=== PATIENT | male | born 1975 | race Caucasian/White ===

== ENCOUNTER 2018-02-01 11:00 | Emergency (ER) | payer OTHER, MEDICAID, SELFPAY ==
[2018-02-01 11:18] VITALS: BP 168/78; PULSE 89; RESP 20; TEMP 36.4; O2SAT 100; BMI 25.8
--- NOTE | 2018-02-01 12:09 | ED_ITS ---
HPI - Back Pain/Injury <Michelle Alvarez PA-C - Last Filed: 02/01/18 18:37> General Chief Complaint: Back Pain/Injury Stated Complaint: LOW BACK PAIN Time Seen by Provider: 02/01/18 12:07 Source: patient Mode of arrival: ambulatory Limitations: physical limitation History of Present Illness HPI Narrative: This 42-year-old who suffers from chronic low back pain comes in today due to exacerbation. He states that he was seen by Dr. Grant in October and states he had L4/5 HNP and arthritis. States that symptoms appeared to be improving so advised no surgery. Since then he has been doing somewhat better overall with pain but states he has had an exacerbation over the last week. He denies any specific injury, states he is working again for the last month and is on his feet more. He states pain is worse standing on his feet, and much worse with any type of twisting. Pain is better flat on his back. He states he has chronic numbness in his legs, more on the left side, but had gotten somewhat better and now getting worse again. He states that he feels like all of his back muscles are weak, and that other parts of his body are painful due to trying to compensate. He states that he is starting to have pain in his neck and numbness, like a feeling that his arms are asleep as well. He states that he shakes his arms and this way except. He states that he does not think there is new weakness in his extremities and it is more pain that stops him and also has muscle spasms. He states Flexeril has helped in the past but makes him sleepy during the day. He states that Young did not help, he thinks that steroids, tramadol, and Percocet helped acute pain in the past also. He states his PCP won't help with this aside from referrals. He denies other new symptoms. States he can get short of breath due to pain and trying to move around but otherwise no dyspnea or chest pain. He denies any bowel or bladder dysfunction. Related Data Home Medications Medication Instructions Recorded Confirmed Otc Pain Medication 1 dose PO PRN PRN 02/01/18 02/01/18 cyclobenzaprine 5 mg PO BID PRN 02/01/18 02/01/18 Previous Rx's Medication Instructions Recorded lidocaine [Lidoderm] 1 patch TOPICAL Q12H PRN #10 ea 09/24/17 cyclobenzaprine 5 mg PO Q8H PRN #30 tab 02/01/18 meloxicam [Mobic] 15 mg PO DAILY #14 tab 02/01/18 tramadol 50 mg PO Q6H PRN #5 tab 02/01/18 Allergies Allergy/AdvReac Type Severity Reaction Status Date / Time No Known Drug Allergies Allergy Verified 02/01/18 12:30 Review of Systems <Michelle Alvarez PA-C - Last Filed: 02/01/18 18:37> Review of Systems All systems reviewed & are unremarkable except as noted in HPI and below Exam <Michelle Alvarez PA-C - Last Filed: 02/01/18 18:37> Narrative Exam Narrative: GENERAL APPEARANCE: Patient sitting comfortably, in no distress. PULMONARY: Lungs clear to auscultation bilaterally CV: Regular rhythm regular without murmur, normal S1 and S2, no S3 or S4 MUSCULOSKELETAL: No point tenderness over the cervical spine. He does have some tenderness over the left strap muscles, and reduced R>L lateral bend secondary to tenderness. Strength in the upper extremities 5/5 bilateral shoulder shrug, biceps, triceps, and escort service attendant. No point tenderness over the lumbar spine. He is tender over the SI area and inferior lumbar musculature at the mid scapular line to lateral scapular line. Reduced range of motion in the trunk in all vazquez secondary to tenderness, especially with rotation and lateral bend. He is tender with move from supine to sit. Lower extremity strength 5/5 bilateral hip flexors, knee extensors, foot plantar flexion. Negative modified straight leg raise NEUROLOGIC: Bilateral DTRs 2+ throughout upper and lower extremities. Sensation is grossly intact throughout the extremities. Initial Vital Signs Initial Vital Signs: Vital Signs Temperature 97.5 F L 02/01/18 11:18 Pulse Rate 89 02/01/18 11:18 Respiratory Rate 20 02/01/18 11:18 Blood Pressure 168/78 H 02/01/18 11:18 Pulse Oximetry 100 02/01/18 11:18 <Viviane Ruano DO - Last Filed: 02/03/18 13:00> Initial Vital Signs Initial Vital Signs: Vital Signs Temperature 97.5 F L 02/01/18 11:18 Pulse Rate 89 02/01/18 11:18 Respiratory Rate 20 02/01/18 11:18 Blood Pressure 168/78 H 02/01/18 11:18 Pulse Oximetry 100 02/01/18 11:18 Course <Michelle Alvarez PA-C - Last Filed: 02/01/18 18:37> Additional Information: Patient appeared significantly improved after medications. He had not tried a lower dose of Flexeril during the day time before and seemed able to tolerate that well. He was unable to get an appointment for PCP follow-up for more than 3 weeks. We did phone and speak with his PCP office since he has had some new symptoms in the upper extremities as well as exacerbation of previous low back pain. We were able to obtain a follow-up appointment for him next week. He is appreciative and understands to return if any acutely worsening symptoms in the interim Orders Ordered: Discontinued Medications Cyclobenzaprine HCl (Flexeril) 5 mg PO NOW ONE Stop: 02/01/18 12:27 Last Admin: 02/01/18 12:51 Dose: 5 mg Ketorolac Tromethamine (Toradol) 60 mg IM NOW ONE Stop: 02/01/18 12:27 Last Admin: 02/01/18 12:45 Dose: 60 mg Lidocaine (Lidoderm) 2 each TOP NOW ONE Stop: 02/01/18 12:27 Last Admin: 02/01/18 12:47 Dose: 2 each Vital Signs - 8 hr 02/01/18 11:18 02/01/18 13:17 Temperature 97.5 F L Pulse Rate 89 73 Respiratory Rate 20 18 Blood Pressure 168/78 H Blood Pressure [Left Arm] 126/88 H Pulse Oximetry 100 98 <Viviane Ruano DO - Last Filed: 02/03/18 13:00> Orders Ordered: Discontinued Medications Cyclobenzaprine HCl (Flexeril) 5 mg PO NOW ONE Stop: 02/01/18 12:27 Last Admin: 02/01/18 12:51 Dose: 5 mg Ketorolac Tromethamine (Toradol) 60 mg IM NOW ONE Stop: 02/01/18 12:27 Last Admin: 02/01/18 12:45 Dose: 60 mg Lidocaine (Lidoderm) 2 each TOP NOW ONE Stop: 02/01/18 12:27 Last Admin: 02/01/18 12:47 Dose: 2 each Vital Signs - 8 hr 02/01/18 11:18 02/01/18 13:17 Temperature 97.5 F L Pulse Rate 89 73 Respiratory Rate 20 18 Blood Pressure 168/78 H Blood Pressure [Left Arm] 126/88 H Pulse Oximetry 100 98 Discharge Plan Departure Patient Disposition: Home, Self-Care Clinical Impression: Lumbar radiculopathy, Numbness and tingling Discharge Date/Time: 02/01/18 14:09 Interventions: ED Discharge Assessment Last Done: 02/01/18 14:08 Instructions: Managing Chronic Low Back Pain, DI for Low Back Pain Activity Restrictions/Additional Instructions: You should return if you have any acutely worsening symptoms such as inability to walk or urinate. I have prescribed a once daily anti-inflammatory for you called meloxicam. Please take this once daily, not with other [id number] NSAIDs such as Aleve or ibuprofen. You can also add [id number] 4% lidocaine patches which are very similar to the prescription, as well as Tylenol. I have prescribed the ?half dose? of the muscle relaxant you had previously, so you can take this during the day if it does not make you to sleepy, but beware of that and do not drive. You can take 2 tablets at night if needed. I have also prescribed a few of the tramadol that you had previously to help the acute pain over the next day or so. Make sure that you follow-up with your PCP next week as planned, check in on Wednesday the at 10: 15 a.m.. Make sure you review your new neck pain and the on and off tingling you have been your arms as well. Prescriptions: New meloxicam [Mobic] 15 mg tablet 15 mg PO DAILY Qty: 14 RF: 0 cyclobenzaprine 5 mg tablet 5 mg PO Q8H PRN (Reason: back pain/spasm) Qty: 30 RF: 0 tramadol 50 mg tablet 50 mg PO Q6H PRN (Reason: pain) Qty: 5 RF: 0 No Action lidocaine [Lidoderm] 1 EACH adhesive patch,medicated 1 patch Topical Q12H PRNQty: 10 RF: 3 cyclobenzaprine 5 MG tablet 5 mg PO BID PRN (Reason: Spasms) RF: 0 Otc Pain Medication 1 dose PO PRN PRN (Reason: Pain, Mild) RF: 0 Referrals: Catherine Rodarte PA-C [Primary Care Provider] - Esequiel Grant MD [Physician] - <Viviane Runao DO - Last Filed: 02/03/18 13:00> Cosign ED Attending Coszabrinaature Attestation: I was immediately available in the department for consultation. Documentation has been reviewed. I agree with assessment and plan.
[2018-02-01] MEDS: KETOROLAC 60 MG/2 ML VIAL IM (12:45)
[2018-02-01] MEDS: LIDOCAINE PATCH 1 EACH ADH..PATCH 2 EACH TOP (12:47)
[2018-02-01] MEDS: CYCLOBENZAPRINE 5 MG TABLET PO (12:51)
[2018-02-01 13:17] VITALS: BP 126/88; PULSE 73; RESP 18; O2SAT 98
== END 2018-02-01 14:09 | disposition home or self-care (01) ==
PROVIDERS: Emergency Provider Internal Medicine; Family Provider Family Medicine; PCP Physician Assistant
DX: M54.16 Radiculopathy, lumbar region (principal); R20.0 Anesthesia of skin; R20.2 Paresthesia of skin
CPT/HCPCS: 81003; 96372; 99282; 99283; J1885

== ENCOUNTER 2018-03-23 01:46 | Emergency (ER) | payer OTHER, MEDICAID, SELFPAY ==
[2018-03-23 02:01] VITALS: BP 134/103; PULSE 92; RESP 18; TEMP 36.7; O2SAT 97
[2018-03-23 03:30] LABS: Urine Amphetamines Negative (Negative); Urine Barbiturates Negative (Negative); Urine Benzodiazepines Positive (Negative); Urine Cocaine Negative (Negative); Urine MDMA Negative (Negative); Urine Methadone Negative (Negative); Urine Methamphetamines Negative (Negative); Urine Morphine/Opi cutoff 2000 Negative (Negative); Urine Oxycodone Negative (Negative); Urine Phencyclidine Negative (Negative); Urine Tetrahydrocannabinol Positive (Negative); Urine Tricyclic Antidepressant Negative (Negative)
[2018-03-23] MEDS: LORazepam 2 MG/ML SYRINGE IV (03:48)
[2018-03-23 03:50] LABS: Add Manual Diff / Slide Review NO; Eosinophils Percent Auto 3.2 % (2-4); Hematocrit 49.9 % (41-53); Hemoglobin 17.3 g/dL (13.5-17.5); Lymphocytes Percent Auto 36.5 % (25-40); Mean Corpuscular HGB Conc 34.6 % (30-36); Mean Corpuscular Hemoglobin 32.2 PG (26-34); Mean Corpuscular Volume 93.2 fL (80-100); Monocytes Percent Auto 9.8 % (3-14); Neutrophils Absolute Auto 2800 /uL (3000-5900); Neutrophils Percent Auto 49.5 % (50-75); Platelet Count 208 X10^3/uL (150-400); Red Blood Cell Count 5.36 X10^6/uL (4.5-5.9); Red Cell Distribution Width 15.5 % (11.6-14.8); White Blood Cell Count 5.7 X10^3/uL (4.5-11.0)
[2018-03-23] MEDS: THIAMINE 100 MG in DEXTROSE 5 % IN WATER 50 ML 204 ML IV (03:52)
[2018-03-23] MEDS: SODIUM CHLORIDE 0.9% 1,000 ML 1000 ML IV (03:52)
[2018-03-23 04:00] LABS: Alanine Aminotransferase 110 IU/L (21-72); Albumin 4.7 g/dL (3.5-5.0); Albumin Globulin Ratio 1.7 (1.0-2.8); Alkaline Phosphatase 122 U/L (38-126); Aspartate Aminotransferase 202 IU/L (17-59); BUN Creatinine Ratio 14.3 (6-22); Bilirubin Total 0.6 mg/dL (0.2-1.3); Bilirubin Unconjugated 0.3 mg/dL (0.0-1.1); Blood Urea Nitrogen 10 mg/dL (9-20); Carbon Dioxide 26 mmol/L (22-32); Chloride 103 mmol/L (98-107); Estimated Glomerular Filt Rate > 60.0 mL/min (>60); Globulin 2.8 g/dL (1.7-4.1); Glucose 93 mg/dL (70-100); HEMOLYSIS 16 (0-50); Lipase 89 U/L (23-300); Magnesium 2.2 mg/dL (1.6-2.3); Potassium 4.1 mmol/L (3.4-5.1); Sodium 145 mmol/L (137-145); Total Protein 7.5 g/dL (6.3-8.2)
[2018-03-23 04:08] LABS: Ethanol (ETOH) 325 mg/dL
[2018-03-23 05:27] VITALS: PULSE 128; RESP 20
--- NOTE | 2018-03-23 05:55 | ED_ITS ---
HPI - Alcohol General Chief Complaint: Toxicology Problem Stated Complaint: states alcoholic, nausea Time Seen by Provider: 03/23/18 01:58 Source: patient Mode of arrival: ambulatory Limitations: no limitations History of Present Illness HPI narrative: 42-year-old male presents to the emergency department with a chief complaint of feeling abnormal after consumption of significant alcohol tonight. He admitted the drinks about 1/5 of liquor per day and has a history of alcohol withdrawal including the DTs and even seizures. His last drink was a few hours prior to arrival. He denies headache or confusion nor nausea, vomiting or abdominal pain. He does complain of some resting tremor. His last effort at detox was about 1 year ago. He is unsure if he wishes to quit drinking or not MD complaint: alcohol intoxication and alcohol withdrawal Chronic alcohol use: Yes Previous visits for alcohol intoxication: Yes Recent trauma: No Associated symptoms: nausea Treatments prior to arrival: none Related Data Home Medications Medication Instructions Recorded Confirmed Otc Pain Medication 1 dose PO PRN PRN 02/01/18 02/11/18 cyclobenzaprine 5 mg PO BID PRN 02/01/18 02/11/18 Previous Rx's Medication Instructions Recorded meloxicam [Mobic] 15 mg PO DAILY #14 tab 02/01/18 tramadol 50 mg tablet 50 mg PO Q6H PRN #30 tab 02/11/18 cyclobenzaprine 5 mg tablet 5 mg PO Q8H PRN #30 tab 03/04/18 lorazepam [Ativan] See Label Instructions .ROUTE 03/23/18 .COMPLEX #19 tab Allergies Allergy/AdvReac Type Severity Reaction Status Date / Time No Known Drug Allergies Allergy Verified 03/04/18 12:35 Review of Systems Review of Systems All systems reviewed & are unremarkable except as noted in HPI and below Constitutional Denies chills, Denies fever(s), Denies lethargy and Denies weakness Eyes Denies change in vision, Denies eye discharge, Denies irritation and Denies loss of vision ENT Ears, Nose, Mouth, and Throat: Denies change in voice, Denies neck pain and Denies sore throat Cardiovascular Denies chest pain, Denies irregular heart rhythm, Denies lightheadedness, Denies palpitations, Denies dyspnea, Denies dyspnea on exertion and Denies orthopnea Respiratory Denies cough, Denies dyspnea, Denies dyspnea on exertion and Denies wheezing Gastrointestinal Gastrointestinal: Denies abdominal pain, Denies change in bowel habits, Denies diarrhea, Reports nausea and Denies vomiting Genitourinary Denies hematuria, Denies flank pain, Denies urinary incontinence and Denies urinary urgency Musculoskeletal Denies neck pain Integumentary/Breasts Denies pruritus, Denies erythema, Denies rash and Denies wounds Neurologic Denies confusion, Denies loss of vision and Denies weakness Psychiatric Denies anxiety, Denies confusion, Denies depression, Denies homicidal ideation and Denies suicidal ideation Endocrine Denies palpitations Hematologic/Lymphatic Denies easy bruising Allergic/Immunologic Denies wheezing [facility] Medical History Chronic back pain (Chronic) Herniated lumbar intervertebral disc (Chronic) History of alcohol abuse (Chronic) Osteoarthritis (Chronic) Surgical History Status post appendectomy Social History Smoking Status: Current every day smoker Tobacco: How many years used: 30 alcohol intake: current (not very much) Exam Narrative Exam Narrative: GENERAL: T 42-year-old male smells of alcohol and is slurring his words a bit. There is no suggestion of injury or trauma HEAD: Atraumatic. Normocephalic. No temporal or scalp tenderness. EYES: Pupils equal round and reactive. Extraocular motions intact. No scleral icterus. No injection or drainage. ENT: Nose without bleeding, purulent drainage or septal hematoma. Throat without erythema, tonsillar hypertrophy or exudate. Uvula midline. Airway patent. NECK: Trachea midline. No JVD or lymphadenopathy. Supple, nontender, no meningeal signs. CARDIOVASCULAR: Regular rate and rhythm without murmurs, gallops, or rubs. RESPIRATORY: Clear to auscultation. Breath sounds equal bilaterally. No wheezes , rales, or rhonchi. GASTROINTESTINAL: Abdomen soft, non-tender, nondistended. No hepato-splenomegaly , or palpable masses. No guarding. EXTREMITIES: No clubbing, cyanosis, or edema. No joint tenderness, effusion, or edema noted. BACK: Nontender without deformity or crepitance. No flank tenderness. NEURO: AOx3. SKIN: No rash or erythema. Initial Vital Signs Initial Vital Signs: Vital Signs Temperature 98.0 F 03/23/18 02:01 Pulse Rate 92 H 03/23/18 02:01 Respiratory Rate 18 03/23/18 02:01 Blood Pressure 134/103 H 03/23/18 02:01 Pulse Oximetry 97 03/23/18 02:01 Course Orders Ordered: Discontinued Medications Sodium Chloride (Normal Saline 0.9%) 1,000 mls @ 1,000 mls/hr IV BOLUS PRN PRN Reason: Fluid replacement Last Infusion: 03/23/18 05:28 Dose: 1,000 mls/hr Admin: 03/23/18 03:52 Dose: 1,000 mls/hr Thiamine HCl 100 mg/ Dextrose 51 mls @ 204 mls/hr IV NOW ONE Stop: 03/23/18 03:09 Last Infusion: 03/23/18 04:07 Dose: 0 mls/hr Admin: 03/23/18 03:52 Dose: 204 mls/hr Lorazepam (Ativan) 2 mg IV NOW ONE Stop: 03/23/18 03:09 Last Admin: 03/23/18 03:48 Dose: 2 mg Reevaluation(s) Reevaluation #1: Patient is alert and oriented in no longer slurring words. He is ambulating without difficulty Vital Signs - 8 hr 03/23/18 02:01 03/23/18 05:27 Temperature 98.0 F Pulse Rate 92 H 128 H Respiratory Rate 18 20 Blood Pressure 134/103 H Pulse Oximetry 97 MDM - Alcohol Lab Data Result diagrams: 03/23/18 03:35 03/23/18 03:35 Labs: Lab Results 03/23/18 03/23/18 03/23/18 Range/Units 02:48 03:35 03:35 WBC 5.7 (4.5-11.0) X10^3/uL RBC 5.36 (4.5-5.9) X10^6/uL Hgb 17.3 (13.5-17.5) g/dL Hct 49.9 (41-53) % MCV 93.2 (80-100) fL MCH 32.2 (26-34) PG MCHC 34.6 (30-36) % RDW 15.5 H (11.6-14.8) % Plt Count 208 (150-400) X10^3/uL Neut % (Auto) 49.5 L (50-75) % Lymph % (Auto) 36.5 (25-40) % [place] % (Auto) 9.8 (3-14) % Eos % (Auto) 3.2 (2-4) % Baso % (Auto) 1.0 (0-2) % Neut # (Auto) 2800 L (0596-4306) /uL Sodium 145 (137-145) mmol/L Potassium 4.1 (3.4-5.1) mmol/L Chloride 103 (98-107) mmol/L Carbon Dioxide 26 (22-32) mmol/L BUN 10 (9-20) mg/dL Creatinine 0.70 (0.66-1.25) mg/dL Estimated GFR > 60.0 (>60) mL/min BUN/Creatinine Ratio 14.3 (6-22) Glucose 93 (70-100) mg/dL Calcium 9.0 (8.4-10.2) mg/dL Magnesium 2.2 (1.6-2.3) mg/dL Total Bilirubin 0.6 (0.2-1.3) mg/dL Conjugated Bilirubin 0.0 (0.0-0.3) md/dL Unconjugated Bilirubin 0.3 (0.0-1.1) mg/dL AST 202 H (17-59) IU/L ALT 110 H (21-72) IU/L Alkaline Phosphatase 122 (38-126) U/L Total Protein 7.5 (6.3-8.2) g/dL Albumin 4.7 (3.5-5.0) g/dL Globulin 2.8 (1.7-4.1) g/dL Albumin/Globulin Ratio 1.7 (1.0-2.8) Lipase 89 (23-300) U/L Urine Opiates Screen Negative (Negative) Ur Oxycodone Screen Negative (Negative) Urine Methadone Screen Negative (Negative) Ur Barbiturates Screen Negative (Negative) U Tricyclic Antidepress Negative (Negative) Ur Phencyclidine Scrn Negative (Negative) Ur Amphetamines Screen Negative (Negative) U Methamphetamines Scrn Negative (Negative) Ur MDMA Scrn (Ecstasy) Negative (Negative) U Benzodiazepines Scrn Positive H (Negative) Urine Cocaine Screen Negative (Negative) U Marijuana (THC) Screen Positive H (Negative) Ethyl Alcohol 325 mg/dL Discharge Plan Departure Patient Disposition: Home Clinical Impression: Alcoholic intoxication Discharge Date/Time: 03/23/18 06:30 Interventions: ED Discharge Assessment Last Done: 03/23/18 06:32 Instructions: Alcohol Use Disorder Activity Restrictions/Additional Instructions: *You have been diagnosed with [chronic alcohol abuse and threatened withdrawal ] *What to do: *Take medications as directed *Follow up with your primary care provider in 2-3 days, call for an appointment. Let them know you were seen in the Emergency Department and that we ask that you be seen in follow up *Return to ER if you should have any new, worsening or concerning symptoms Prescriptions: New lorazepam [Ativan] 1 mg tablet See Label Instructions .ROUTE .COMPLEX Qty: 19 RF: 0 No Action tramadol 50 mg tablet 50 mg PO Q6H PRN (Reason: pain) Qty: 30 RF: 0 cyclobenzaprine 5 mg tablet 5 mg PO Q8H PRN (Reason: back pain/spasm) Qty: 30 RF: 0 cyclobenzaprine 5 MG tablet 5 mg PO BID PRN (Reason: Spasms) RF: 0 Otc Pain Medication 1 dose PO PRN PRN (Reason: Pain, Mild) RF: 0 meloxicam [Mobic] 15 mg tablet 15 mg PO DAILY Qty: 14 RF: 0 Referrals: [facility] [Outside] [facility] [Outside] Ludy Bae DO [Primary Care Provider] -
[2018-03-23 06:32] VITALS: BP 130/78; PULSE 80; RESP 16
== END 2018-03-23 06:30 | disposition home or self-care (01) ==
PROVIDERS: Emergency Provider Emergency Medicine; Family Provider Family Medicine; PCP Family Medicine
DX: F10.929 Alcohol use, unspecified with intoxication, unspecified (principal)
CPT/HCPCS: 80053; 80076; 80305; 80320; 81003; 83690; 83735; 85025; 96361; 96374; 96375; 99284; J2060

== ENCOUNTER → 2018-04-13 11:20 | Outpatient (CLI) | payer OTHER, MEDICAID, SELFPAY | PROVIDERS: PCP Family Medicine; Visit Provider Family Medicine | DX: B17.9 Acute viral hepatitis, unspecified (principal); R94.5 Abnormal results of liver function studies; F10.20 Alcohol dependence, uncomplicated ==

== ENCOUNTER → 2018-04-26 10:34 | Outpatient (CLI) | payer OTHER, MEDICAID, SELFPAY ==
--- NOTE | 2018-04-26 10:37 | DI.RAD.S_ITS ---
PROCEDURE: XR KNEE RT 3V INDICATIONS: pain in right knee TECHNIQUE: 3 views of the knee were acquired. COMPARISON: None. FINDINGS: Bones: No fractures or dislocations. No suspicious bony lesions. Mild spurring consistent with early joint degeneration. Soft tissues: No joint effusion. No suspicious soft tissue calcifications. IMPRESSION: Mild degenerative joint disease. Dictated by: David Lafleur M.D. on 04/26/2018 at 14:10 Approved by: David Lafleur M.D. on 04/26/2018 at 14:11
[2018-04-26 11:04] LABS: Add Manual Diff / Slide Review NO; Basophils Percent Auto 0.9 % (0-2); Eosinophils Percent Auto 6.9 % (2-4); Hematocrit 46.4 % (41-53); Hemoglobin 15.8 g/dL (13.5-17.5); Lymphocytes Percent Auto 29.9 % (25-40); Mean Corpuscular Hemoglobin 32.4 PG (26-34); Mean Corpuscular Volume 95.4 fL (80-100); Neutrophils Absolute Auto 3400 /uL (3000-5900); Neutrophils Percent Auto 52.3 % (50-75); Platelet Count 252 X10^3/uL (150-400); Red Blood Cell Count 4.86 X10^6/uL (4.5-5.9); Red Cell Distribution Width 14.8 % (11.6-14.8); White Blood Cell Count 6.5 X10^3/uL (4.5-11.0)
[2018-04-26 11:35] LABS: Alanine Aminotransferase 28 IU/L (21-72); Albumin 4.4 g/dL (3.5-5.0); Albumin Globulin Ratio 1.8 (1.0-2.8); Alkaline Phosphatase 76 U/L (38-126); Aspartate Aminotransferase 23 IU/L (17-59); BUN Creatinine Ratio 21.4 (6-22); Bilirubin Total 0.4 mg/dL (0.2-1.3); Blood Urea Nitrogen 15 mg/dL (9-20); Calcium 9.9 mg/dL (8.4-10.2); Carbon Dioxide 27 mmol/L (22-32); Chloride 106 mmol/L (98-107); Estimated Glomerular Filt Rate > 60.0 mL/min (>60); Globulin 2.5 g/dL (1.7-4.1); Glucose 73 mg/dL (70-100); HEMOLYSIS < 15 (0-50); Potassium 4.7 mmol/L (3.4-5.1); Sodium 144 mmol/L (137-145); Total Protein 6.9 g/dL (6.3-8.2)
== END ==
PROVIDERS: PCP Family Medicine; Visit Provider Family Medicine
DX: S86.911A Strain of unspecified muscle(s) and tendon(s) at lower leg level, right leg, initial encounter (principal); B17.9 Acute viral hepatitis, unspecified; R94.5 Abnormal results of liver function studies; F10.20 Alcohol dependence, uncomplicated
CPT/HCPCS: 36415; 73562; 80053; 82140; 85025

== ENCOUNTER → 2019-04-24 13:01 | Outpatient (CLI) | payer MEDICAID, SELFPAY ==
[2019-04-24 13:51] LABS: Hematocrit 47.8 % (41-53); Hemoglobin 16.4 g/dL (13.5-17.5); Mean Corpuscular HGB Conc 34.3 % (30-36); Mean Corpuscular Hemoglobin 33.3 PG (26-34); Mean Corpuscular Volume 97.1 fL (80-100); Platelet Count 266 X10^3/uL (150-400); Red Blood Cell Count 4.92 X10^6/uL (4.5-5.9); Red Cell Distribution Width 12.6 % (11.6-14.8); White Blood Cell Count 8.5 X10^3/uL (4.5-11.0)
[2019-04-24 14:04] LABS: Appearance Urine UA CLEAR; Bilirubin Urine UA NEGATIVE (NEGATIVE); Color Urine UA YELLOW; Glucose Urine UA NEGATIVE (Negative); Ketones Urine UA 1+ (NEGATIVE); Leukocyte Esterase Urine UA NEGATIVE (NEGATIVE); Nitrite Urine UA NEGATIVE (Negative); Occult Blood Urine UA NEGATIVE (Negative); Protein Urine UA TRACE (Negative); Specific Gravity Urine UA 1.015 (1.000-1.035); Urobilinogen Urine UA 0.2 E.U./dL (0.2)
[2019-04-24 14:16] LABS: Alanine Aminotransferase 22 IU/L (21-72); Albumin 4.7 g/dL (3.5-5.0); Albumin Globulin Ratio 1.8 (1.0-2.8); Alkaline Phosphatase 81 U/L (38-126); Aspartate Aminotransferase 35 IU/L (17-59); BUN Creatinine Ratio 22.9 (6-22); Bilirubin Total 0.3 mg/dL (0.2-1.3); Blood Urea Nitrogen 16 mg/dL (9-20); Calcium 9.8 mg/dL (8.4-10.2); Carbon Dioxide 23 mmol/L (22-32); Chloride 102 mmol/L (98-107); Cholesterol 256 mg/dL (140-199); Estimated Glomerular Filt Rate > 60.0 mL/min (>60); Globulin 2.6 g/dL (1.7-4.1); Glucose 101 mg/dL (70-100); HEMOLYSIS < 15 (0-50); Potassium 4.5 mmol/L (3.4-5.1); Sodium 141 mmol/L (137-145); Total Protein 7.3 g/dL (6.3-8.2); Triglycerides 303 mg/dL (35-150)
[2019-04-24 14:46] LABS: Thyroid Stimulating Hormone 0.31 uIU/mL (0.47-4.68)
[2019-04-24 14:49] LABS: Neutrophils Absolute Manual 5610 /uL (3000-5900); RBC Morphology Normal Morphology; Total Cells Counted 100
[2019-04-24 14:55] LABS: HDL Cholesterol 127 mg/dL (40-60); LDL Cholesterol Calculated 68 mg/dL (<100)
== END ==
PROVIDERS: PCP Family Medicine; Visit Provider Family Medicine
DX: R94.5 Abnormal results of liver function studies (principal); Z51.81 Encounter for therapeutic drug level monitoring
CPT/HCPCS: 36415; 80053; 80061; 81003; 84443; 85025

== ENCOUNTER → 2020-01-25 15:40 | Outpatient (CLI) | payer OTHER, MEDICAID, SELFPAY ==
--- NOTE | 2020-01-25 | DI.MRI.S_ITS ---
PROCEDURE: MR LUMBAR SPINE WO CON INDICATIONS: Lumbago with sciatica, right side TECHNIQUE: Noncontrast sagittal T1 spin echo and T2 fast echo, sagittal STIR, axial T1 and T2 fast spin echo through the lumbar spine. In cases with scoliosis, additional coronal T2 fast spin echo may be performed. COMPARISON: [facility] [place], CR, XR LUMBAR SPINE 2 OR 3 VIEWS, 11/10/2017, 11:05. [facility], MR, L-SPINE WITHOUT CONTRAST, 11/19/2017, 17:34. FINDINGS: Image quality: Excellent. Alignment and Curvature: 5 nonrib-bearing lumbar type vertebral bodies are present. There is mild grade 1 retrolisthesis of L4 on L5 and L5 on S1. Bone Marrow: Marrow is of normal overall signal. No acute vertebral body compression fractures. There is mild reactive signal within the endplates adjacent to the L4-L5 and L5-S1 intervertebral discs. There is mild chronic writing of L1. Spinal Cord: Conus medullaris terminates at the L1-L2 disc space level. Visualized cord demonstrates normal signal and size. Paraspinous Soft Tissues: No paravertebral masses. L1-L2: Mild disc height loss and desiccation. Mild diffuse disc bulge. Minimal canal stenosis. No foraminal stenosis. No change. L2-L3: Mild facet and ligamentum flavum hypertrophy. Mild epidural lipomatosis. Mild canal stenosis. No foraminal stenosis. No change. L3-L4: Mild facet and ligament flavum hypertrophy. Mild epidural lipomatosis. Mild canal stenosis. No foraminal stenosis. No change. L4-L5: Mild disc height loss and desiccation. Mild diffuse disc bulge. Mild facet and ligament flavum hypertrophy. Mild epidural lipomatosis. Mild canal stenosis. Mild bilateral foraminal stenosis. No change. L5-S1: Moderate disc height loss and desiccation. Mild diffuse disc bulge with superimposed right paracentral disc extrusion, extending inferiorly within the lateral recess, as before. Mild bilateral facet hypertrophy. No significant canal stenosis. Moderate bilateral foraminal stenosis. The disc extrusion abuts the right S1 nerve root within the lateral recess, but does not appear to compress it, nor deviate it. This is not significantly changed. IMPRESSION: 1. Multilevel degenerative disc and facet disease, as well as ligamentum flavum hypertrophy and epidural lipomatosis. 2. Mild multilevel canal stenoses. 3. Multilevel foraminal stenoses, worse at L5-S1 bilaterally where there are moderate foraminal stenoses, as before. 4. No change in L5-S1 disc extrusion, which abuts the right S1 nerve root but does not appear to compress it, nor deviate it. Recommend correlation with clinical symptoms to ascertain relevance of this finding. Dictated by: Monika Pompa M.D. on 01/25/2020 at 16:32 Approved by: Monika Pompa M.D. on 01/25/2020 at 16:37
== END ==
PROVIDERS: PCP Family Medicine; Referring Provider Orthopaedic Surgery; Visit Provider Orthopaedic Surgery
DX: M51.16 Intervertebral disc disorders with radiculopathy, lumbar region (principal); M51.17 Intervertebral disc disorders with radiculopathy, lumbosacral region; M48.07 Spinal stenosis, lumbosacral region; M48.061 Spinal stenosis, lumbar region without neurogenic claudication; E88.2 Lipomatosis, not elsewhere classified
CPT/HCPCS: 72148